=== PATIENT | male | born 1955 | race Asian ===

== ENCOUNTER → 2016-11-13 | Outpatient (CLI) | payer BC ==
[2016-11-13 09:59] LABS: BASOPHILS % 0.8 % (0.0-2.0); EOSINOPHILS % 2.6 % (0.0-5.0); LYMPHOCYTES % 34.7 % (20.0-50.0); MEAN CORPUSCULAR HEMOGLOBIN 21.5 pg (28.0-32.0); MEAN CORPUSCULAR HGB CONC 31.2 g/dL (31.0-37.0); MEAN PLATELET VOLUME 7.7 fl (7.4-10.4); MONOCYTES % 7.3 % (2.0-8.0); NEUTROPHILS % 54.6 % (40.0-76.0); PLATELET 198 x1000/uL (130-400); RED BLOOD CELL COUNT 6.53 mill/uL (4.7-6.1); RED CELL DISTRIBUTION WIDTH 14.9 % (11.6-14.6); WHITE BLOOD COUNT 4.6 x1000/uL (4.5-11.0)
[2016-11-13 10:02] LABS: ADD RBC MORPHOLOGY YES; DIFFERENTIAL COMMENT 1
[2016-11-13 10:07] LABS: PARTIAL THROMBOPLASTIN TIME 27.8 sec (24.0-34.0); PROTHROMBIN TIME 10.2 sec
[2016-11-13 11:06] LABS: ALANINE AMINOTRANSFERASE 57 IU/L (13-61); ALBUMIN 3.9 g/dL (3.4-5.0); ANION GAP 15; BILIRUBIN DIRECT < 0.1 mg/dL (0.0-0.2); CALCIUM 8.8 mg/dL (8.5-10.1); CARBON DIOXIDE 26 mEq/L (21-32); CHLORIDE 104 mEq/L (98-107); HDL CHOLESTEROL 41 mg/dL (40-59); INDEX HEMOLYSI 1 (1-3); INDEX ICTERIC 1 (1-4); INDEX LIPEMIC 1 (1-3); LDL CHOLESTEROL 156 mg/dL (5-100); T4 FREE 1.04 ng/dL (0.76-1.46); THYROID STIMULATING HORMONE 0.65 uIU/mL (0.36-3.74); TRIGLYCERIDE 138 mg/dL (0-150); UREA NITROGEN BLOOD 20 mg/dL (7-21); eGFR > 60 mL/min (>60)
[2016-11-13 12:46] LABS: PLATELET ESTIMATE NORMAL
== END | disposition home or self-care (01) ==
LOC: LAB 09:29
PROVIDERS: ATTEND Internal Medicine
DX: Z01.818 Encounter for other preprocedural examination (principal); J44.9 Chronic obstructive pulmonary disease, unspecified; E78.2 Mixed hyperlipidemia; E11.9 Type 2 diabetes mellitus without complications
CPT/HCPCS: 36415; 71010; 80053; 80061; 82248; 83036; 84439; 84443; 85025; 85610; 85730

== ENCOUNTER → 2017-02-12 | Outpatient (CLI) | payer BC | END | disposition home or self-care (01) | LOC: RAD 09:43 | PROVIDERS: ATTEND Internal Medicine | DX: M47.892 Other spondylosis, cervical region (principal); M19.012 Primary osteoarthritis, left shoulder; Z91.81 History of falling | CPT/HCPCS: 72040; 73030 ==

== ENCOUNTER 2017-02-17 16:26 | Emergency (ER) | payer BC ==
[~2017-02-17] VITALS: Ht 162.6 cm; Wt 66.0 kg
[2017-02-17] MEDS ORDERED: KETOROLAC 60MG/2ML VIAL IM ONE (17:00)
[2017-02-17] MEDS ORDERED: TETANUS, DIPHTHERIA, PERTUSSIS VAC/PF 0.5ML (>7YR OLD) IM ONE (17:00)
[2017-02-17] MEDS ORDERED: ACETAMINOPHEN 325MG TABLET PO ONE (17:45)
[2017-02-17 19:22] VITALS: BP 123/83
== END 2017-02-17 19:56 | disposition home or self-care (01) ==
LOC: ER 17:07
DX: S00.01XA Abrasion of scalp, initial encounter (principal); R41.0 Disorientation, unspecified; R42 Dizziness and giddiness; W20.8XXA Other cause of strike by thrown, projected or falling object, initial encounter; Y93.89 Activity, other specified; Y92.89 Other specified places as the place of occurrence of the external cause; E11.9 Type 2 diabetes mellitus without complications; Z23 Encounter for immunization
CPT/HCPCS: 70450; 90471; 90715; 99284

== ENCOUNTER → 2017-03-06 | Outpatient (CLI) | payer BC ==
[~2017-03-06] MED LIST: SIMV40TA5 PO
[2017-03-06 10:15] LABS: BASOPHILS % 0.9 % (0.0-2.0); EOSINOPHILS % 1.8 % (0.0-5.0); HEMATOCRIT. 42.2 % (42.0-52.0); HEMOGLOBIN. 13.5 g/dL (14.0-18.0); LYMPHOCYTES % 36.2 % (20.0-50.0); MEAN CORPUSCULAR HEMOGLOBIN 21.8 pg (28.0-32.0); MEAN CORPUSCULAR VOLUME 68.5 fL (80.0-94.0); MEAN PLATELET VOLUME 7.5 fl (7.4-10.4); MONOCYTES % 8.7 % (2.0-8.0); NEUTROPHILS % 52.4 % (40.0-76.0); PLATELET 197 x1000/uL (130-400); RED BLOOD CELL COUNT 6.16 mill/uL (4.7-6.1); RED CELL DISTRIBUTION WIDTH 14.9 % (11.6-14.6)
[2017-03-06 10:17] LABS: PARTIAL THROMBOPLASTIN TIME 27.3 sec (23.4-31.0)
[2017-03-06 10:33] LABS: CARBON DIOXIDE 28 mEq/L (21-32); CHLORIDE 107 mEq/L (98-107); HDL CHOLESTEROL 45 mg/dL (40-59); LDL CHOLESTEROL 159 mg/dL (5-100); T4 FREE 0.97 ng/dL (0.76-1.46)
[2017-03-07 20:11] LABS: PLATELET ESTIMATE NORMAL
== END | disposition home or self-care (01) ==
LOC: EDBD → LAB 09:43
PROVIDERS: ATTEND Internal Medicine
DX: I10 Essential (primary) hypertension (principal); E11.8 Type 2 diabetes mellitus with unspecified complications
CPT/HCPCS: 36415; 80053; 80061; 80076; 82248; 83036; 84439; 84443; 85025; 85610; 85730

== ENCOUNTER 2017-03-16 12:33 | Day surgery (SDC) | payer BC ==
[~2017-03-16] VITALS: Ht 162.6 cm; Wt 65.8 kg
[2017-03-16] MEDS ORDERED: TRIAMCINOLONE ACETONIDE 40MG/ML 1ML VIAL ONE (12:55)
[2017-03-16] MEDS ORDERED: LIDOCAINE HCL 1% 20ML VIAL (Pyxis) INJ ONE ×2 (12:56→16:07)
[2017-03-16] MEDS ORDERED: BUPIVACAINE HCL/PF 0.5% (5MG/ML) 10ML ONE (12:56)
[2017-03-16] MEDS ORDERED: GENTAMICIN SULF 40MG/ML 2ML VIAL ONE (12:56)
[2017-03-16] MEDS ORDERED: DEXAMETHASONE 4MG/ML 1ML VIAL ONE ×2 (12:56→16:07)
[2017-03-16] MEDS ORDERED: LIDOCAINE HCL/PF 2% 20MG/ML 5 ML/VIAL ONE (13:13)
[2017-03-16] MEDS ORDERED: FENTANYL CITRATE/PF 50MCG/ML 2ML VIAL ONE (13:52)
[2017-03-16] MEDS ORDERED: MIDAZOLAM HCL 2 MG/2 ML VIAL ONE (13:53)
[2017-03-16] MEDS ORDERED: MEPERIDINE HCL/PF 25MG/ML CPJ IV PRN (14:30)
[2017-03-16] MEDS ORDERED: ONDANSETRON HCL 4MG/2ML VIAL IV PRN (14:30)
[2017-03-16] MEDS ORDERED: LABETALOL HCL 20MG/4ML CARPUJECT IV PRN (14:30)
[2017-03-16] MEDS ORDERED: HYDROMORPHONE HCL/PF 2MG/ML CPJ IV PRN (14:30)
[2017-03-16] MEDS ORDERED: CEFAZOLIN SODIUM 1000MG/VIAL ONE (16:07)
[2017-03-16] MEDS ORDERED: PROPOFOL 200MG/20ML VIAL IV ONE (16:07)
[2017-03-16] MEDS ORDERED: ONDANSETRON HCL 4MG/2ML VIAL ONE (16:07)
[2017-03-16] MEDS ORDERED: SODIUM CHLORIDE 0.9% 10ML VIAL ONE (16:07)
== END 2017-03-16 15:30 | disposition home or self-care (01) ==
LOC: OR 12:33 → EDBD 13:30 → OR 15:30
PROVIDERS: ATTEND Podiatrist Foot & Ankle Surgery
DX: M79.89 Other specified soft tissue disorders (principal); L57.0 Actinic keratosis; E11.9 Type 2 diabetes mellitus without complications
CPT/HCPCS: 28045; 73620; 82962; 88305; 88311; A4216; J0690; J1100; J1580; J2250; J2405; J3010; J3490; J7120; J2704; J3301

== ENCOUNTER → 2017-07-02 | Outpatient (CLI) | payer BC ==
[2017-07-02 09:10] LABS: BASOPHILS % 0.9 % (0.0-2.0); EOSINOPHILS % 3.2 % (0.0-5.0); HEMATOCRIT. 43.2 % (42.0-52.0); HEMOGLOBIN. 13.2 g/dL (14.0-18.0); LYMPHOCYTES % 27.6 % (20.0-50.0); MEAN CORPUSCULAR HEMOGLOBIN 21.5 pg (28.0-32.0); MEAN CORPUSCULAR VOLUME 70.3 fL (80.0-94.0); MEAN PLATELET VOLUME 7.7 fl (7.4-10.4); MONOCYTES % 6.9 % (2.0-8.0); NEUTROPHILS % 61.4 % (40.0-76.0); PLATELET 212 x1000/uL (130-400); RED BLOOD CELL COUNT 6.14 mill/uL (4.7-6.1); RED CELL DISTRIBUTION WIDTH 14.7 % (11.6-14.6)
[2017-07-02 09:50] LABS: CHLORIDE 107 mEq/L (98-107); T4 FREE 1.01 ng/dL (0.76-1.46)
[2017-07-02 09:53] LABS: CARBON DIOXIDE 25 mEq/L (21-32); HDL CHOLESTEROL 38 mg/dL (40-59); LDL CHOLESTEROL 103 mg/dL (5-100); PHOSPHORUS 2.8 mg/dL (2.5-4.9)
== END | disposition home or self-care (01) ==
LOC: RAD 08:30
PROVIDERS: ATTEND Internal Medicine
DX: M19.011 Primary osteoarthritis, right shoulder (principal); M19.012 Primary osteoarthritis, left shoulder; E11.9 Type 2 diabetes mellitus without complications; E78.5 Hyperlipidemia, unspecified
CPT/HCPCS: 36415; 73030; 80061; 80069; 80076; 83036; 84153; 84439; 84443; 85025

== ENCOUNTER → 2018-12-03 | Outpatient (CLI) | payer BC ==
[2018-12-03 14:37] LABS: BASOPHILS % 0.9 % (0.0-2.0); EOSINOPHILS % 1.1 % (0.0-5.0); HEMATOCRIT. 43.4 % (42.0-52.0); HEMOGLOBIN. 13.4 g/dL (14.0-18.0); LYMPHOCYTES % 32.7 % (20.0-50.0); MEAN CORPUSCULAR HEMOGLOBIN 21.7 pg (28.0-32.0); MEAN CORPUSCULAR VOLUME 70.3 fL (80.0-94.0); MEAN PLATELET VOLUME 7.7 fl (7.4-10.4); MONOCYTES % 8.3 % (2.0-8.0); PLATELET 183 x1000/uL (130-400); RED BLOOD CELL COUNT 6.17 mill/uL (4.7-6.1)
[2018-12-03 14:53] LABS: CHLORIDE 106 mEq/L (98-107)
[2018-12-03 15:01] LABS: LDL CHOLESTEROL 117 mg/dL (5-100)
[2018-12-03 15:03] LABS: HDL CHOLESTEROL 40 mg/dL (40-59); T4 FREE 0.97 ng/dL (0.76-1.46)
== END | disposition home or self-care (01) ==
LOC: LAB 14:12
PROVIDERS: ATTEND Internal Medicine
DX: N40.0 Benign prostatic hyperplasia without lower urinary tract symptoms (principal); E11.9 Type 2 diabetes mellitus without complications; E78.5 Hyperlipidemia, unspecified
CPT/HCPCS: 36415; 80061; 80076; 82306; 83036; 84153; 84439; 84443; G0103

== ENCOUNTER → 2019-06-21 | Outpatient (CLI) | payer BC ==
[2019-06-21 10:09] LABS: BASOPHILS % 0.4 % (0.0-2.0); HEMATOCRIT. 46.1 % (42.0-52.0); HEMOGLOBIN. 14.3 g/dL (14.0-18.0); LYMPHOCYTES % 31.3 % (20.0-50.0); MEAN CORPUSCULAR VOLUME 70.7 fL (80.0-94.0); MEAN PLATELET VOLUME 7.9 fl (7.4-10.4); MONOCYTES % 7.7 % (2.0-8.0); NEUTROPHILS % 59.6 % (40.0-76.0); PLATELET 202 x1000/uL (130-400); RED BLOOD CELL COUNT 6.52 mill/uL (4.7-6.1); RED CELL DISTRIBUTION WIDTH 15.7 % (11.6-14.6)
[2019-06-21 10:23] LABS: CHLORIDE 105 mEq/L (98-107)
[2019-06-21 10:44] LABS: HDL CHOLESTEROL 44 mg/dL (40-59)
[2019-06-21 10:45] LABS: LDL CHOLESTEROL 114 mg/dL (5-100)
== END | disposition home or self-care (01) ==
LOC: LAB 09:35
PROVIDERS: ATTEND Internal Medicine
DX: I10 Essential (primary) hypertension (principal); E11.9 Type 2 diabetes mellitus without complications; E78.5 Hyperlipidemia, unspecified
CPT/HCPCS: 36415; 80061; 82248; 83036; 84153; 84439; 84443; G0103

== ENCOUNTER → 2020-02-10 | Outpatient (CLI) | payer BC ==
[~2020-02-10] MED LIST changes: +SIMV-46 PO; -SIMV40TA5 PO
[2020-02-10 15:57] LABS: BASOPHILS % 0.6 % (0.0-2.0); EOSINOPHILS % 0.8 % (0.0-5.0); HEMATOCRIT. 44.7 % (42.0-52.0); LYMPHOCYTES % 27.4 % (20.0-50.0); MEAN CORPUSCULAR HEMOGLOBIN 22.1 pg (28.0-32.0); MEAN CORPUSCULAR VOLUME 70.4 fL (80.0-94.0); MEAN PLATELET VOLUME 8.1 fl (7.4-10.4); MONOCYTES % 6.8 % (2.0-8.0); NEUTROPHILS % 64.4 % (40.0-76.0); PLATELET 195 x1000/uL (130-400); RED BLOOD CELL COUNT 6.35 mill/uL (4.7-6.1); RED CELL DISTRIBUTION WIDTH 14.9 % (11.6-14.6)
[2020-02-10 16:02] LABS: CHLORIDE 104 mEq/L (98-107)
[2020-02-10 16:11] LABS: LDL CHOLESTEROL 118 mg/dL (5-100)
[2020-02-10 16:12] LABS: HDL CHOLESTEROL 39 mg/dL (40-59)
== END | disposition home or self-care (01) ==
LOC: LAB 15:02
PROVIDERS: ATTEND Internal Medicine
DX: I10 Essential (primary) hypertension (principal); E11.9 Type 2 diabetes mellitus without complications; E78.5 Hyperlipidemia, unspecified
CPT/HCPCS: 36415; 80053; 80061; 80076; 83036; 84153; 84436; 84443; 85025; G0103